=== PATIENT | female | born 1980 | race Hispanic/Latino ===

== ENCOUNTER 2020-09-29 19:36 | Inpatient (IN) | payer OTHER ==
[~2020-09-29] VITALS: Ht 152.4 cm; Wt 89.8 kg
[2020-09-29 21:21] VITALS: BP 90/57
[2020-09-29] MEDS ORDERED: ACETAMINOPHEN 500 MG TABLET PO ONE (22:00)
[2020-09-29] MEDS ORDERED: ACETAMINOPHEN 500 MG TABLET ONE (22:01)
[2020-09-29 22:07] LABS: BASOPHILS % (AUTO) 0.2 % (0.0-5.0); EOSINOPHILS % (AUTO) 0.2 % (0.0-8.0); HEMATOCRIT 40.6 % (36-48); MEAN CORPUSCULAR HEMOGLOBIN 26.8 pg (27.0-33.0); MEAN CORPUSCULAR HGB CONC 34.2 g/dL (32.0-36.0); MEAN CORPUSCULAR VOLUME 78.2 fL (79-99); PLATELET COUNT (AUTO) 182 K/uL (130-400); RED BLOOD CELL COUNT(AUTO) 5.19 MIL/uL (4.00-5.50); RED CELL DISTRIBUTION WIDTH 13.5 % (11.0-15.5); WHITE BLOOD COUNT (AUTO) 6.6 K/uL (4.8-10.8)
[2020-09-29 22:20] LABS: CREATININE 0.7 mg/dL (0.5-1.5); POTASSIUM 3.4 mmol/L (3.5-5.1)
[2020-09-29 22:24] LABS: ALBUMIN 3.7 g/dL (3.5-5.0); BILIRUBIN,TOTAL 0.6 mg/dL (0.2-1.0); CRP QUANTITATIVE 40.9 mg/L (0.00-9.0); TOTAL PROTEIN, SERUM 7.8 g/dL (6.0-8.3)
[2020-09-30] VITALS (9 sets, daily range): BP systolic 73–105; BP diastolic 44–92
[2020-09-30 00:01] LABS: ERYTHROCYTE SEDIMENTATION RATE 42 MM/HR (0-20)
[2020-09-30] MEDS ORDERED: IOHEXOL 350 MG/ML 100ML INFUS..BTL IV ONE (00:56)
[2020-09-30 00:57] LABS: ABG HCO3 23.2 mmol/L (21.0-28.0); ABG PCO2 34 mmHg (32-45)
[2020-09-30] MEDS ORDERED: CEFTRIAXONE 1G VIAL ONE (00:57)
[2020-09-30] MEDS ORDERED: AZITHROMYCIN 500MG+NS 250ML 250 ML IV ONE (00:57)
[2020-09-30] MEDS ORDERED: ONDANSETRON 4MG INJ ONE (00:57)
[2020-09-30] MEDS ORDERED: IBUPROFEN 600 MG TABLET PO PRN ×2 (01:00→23:00)
[2020-09-30] MEDS: AZITHROMYCIN 500MG VIAL IVPB SCH (01:15)
[2020-09-30] MEDS: CEFTRIAXONE 1G VIAL IVP SCH (01:15)
[2020-09-30] MEDS: ONDANSETRON 4MG INJ IVP PRN (01:15)
[2020-09-30] MEDS: 0.9% NACL 250ML IVPB SCH (01:15)
[2020-09-30 01:20] LABS: HEMOGLOBIN A1C 6.2 % (4.0-6.0)
[2020-09-30] MEDS: ALBUTEROL INHALER 90MCG/INH IH PRN ×2 (04:59→10:50)
[2020-09-30] MEDS: INSULIN HUMULIN R 100 UNIT/ML 3ML SQ SCH ×4 (07:30→21:59)
[2020-09-30] MEDS ORDERED: KCL 20 MEQ ERTAB PO ONE (08:30)
[2020-09-30] MEDS ORDERED: ENOXAPARIN SODIUM 40 MG/0.4 ML SYRINGE SQ SCH (09:00)
[2020-09-30] MEDS: ENOXAPARIN SODIUM 40 MG/0.4 ML SYRINGE SQ SCH ×3 (09:00→22:47)
[2020-09-30] MEDS ORDERED: ASCORBIC ACID 500 MG TAB PO SCH (09:00)
[2020-09-30] MEDS ORDERED: IBUPROFEN 600 MG TABLET ONE (10:37)
[2020-09-30] MEDS ORDERED: DEXAMETHASONE SOD PHOSPHATE 4 MG/ML 1ML VIAL ONE (10:40)
[2020-09-30] MEDS: ZINC SULFATE 220 CAPSULE PO SCH (10:49)
[2020-09-30] MEDS ORDERED: ERGOCALCIFEROL (VITAMIN D2) 50,000 UNIT CAPSULE PO ONE (11:00)
[2020-09-30] MEDS ORDERED: PHARMACY COMMUNICATION MISC SCH ×2 (11:00→18:30)
[2020-09-30 11:22] LABS: EOSINOPHILS % (AUTO) 2.5 % (0.0-8.0); HEMATOCRIT 36.2 % (36-48); LYMPHOCYTES % (AUTO) 16.9 % (21.0-51.0); MEAN CORPUSCULAR HEMOGLOBIN 27.2 pg (27.0-33.0); MEAN CORPUSCULAR HGB CONC 34.8 g/dL (32.0-36.0); MEAN CORPUSCULAR VOLUME 78.2 fL (79-99); MONOCYTES % (AUTO) 2.2 % (3.0-13.0); NEUTROPHILS % (AUTO) 77.7 % (40.0-77.0); PLATELET COUNT (AUTO) 167 K/uL (130-400); RED BLOOD CELL COUNT(AUTO) 4.63 MIL/uL (4.00-5.50); RED CELL DISTRIBUTION WIDTH 13.6 % (11.0-15.5)
[2020-09-30] MEDS ORDERED: PHARMACY COMMUNICATION**REMDESIVIR ORDER MISC SCH (11:30)
[2020-09-30 11:38] LABS: ALBUMIN 3.1 g/dL (3.5-5.0); BILIRUBIN,TOTAL 0.4 mg/dL (0.2-1.0); CREATININE 0.7 mg/dL (0.5-1.5); CRP QUANTITATIVE 57.9 mg/L (0.00-9.0); POTASSIUM 3.3 mmol/L (3.5-5.1); TOTAL PROTEIN, SERUM 6.9 g/dL (6.0-8.3)
[2020-09-30] MEDS ORDERED: COMPOUND IV REFRIGERATED 1 EACH IVSOLN MISC PRN (12:00)
[2020-09-30] MEDS ORDERED: REMDESIVIR (EUA) 520 200 MG in 0.9% NACL 250ML 250 ML IV ONE (12:00)
[2020-09-30] MEDS: DEXAMETHASONE SOD PHOSPHATE 4 MG/ML 1ML VIAL IVP SCH (12:00)
[2020-09-30] MEDS ORDERED: ERGOCALCIFEROL (VITAMIN D2) 50,000 UNIT CAPSULE ONE (13:17)
[2020-09-30] MEDS ORDERED: POTASSIUM CHLORIDE 10% ELIXIR 20 MEQ/15 ML UDCUP PO ONE (18:00)
[2020-09-30] MEDS ORDERED: [UNRECOGNIZED DRUG - OTHER] MISC SCH (18:00)
[2020-09-30] MEDS ORDERED: LACTATED RINGERS 1000ML IV ONE (19:30)
[2020-09-30] MEDS ORDERED: NOREPINEPHRINE 4MG/NS 250ML 250 ML IV PRN (19:30)
[2020-09-30] MEDS: MIDODRINE HCL 5 MG TABLET PO SCH (21:40)
[2020-09-30 22:45] LABS: INR 0.97 (0.85-1.15); PROTHROMBIN TIME 10.6 SEC (9.6-11.6)
[2020-09-30 22:46] LABS: PARTIAL THROMBOPLASTIN TIME 32.8 SEC (26.3-35.5)
[2020-10-01] MEDS ORDERED: AZITHROMYCIN 500MG+NS 250ML 250 ML IV ONE (01:31)
[2020-10-01] MEDS: 0.9% NACL 250ML IVPB SCH ×2 (01:37→21:33)
[2020-10-01] MEDS: AZITHROMYCIN 500MG VIAL IVPB SCH (01:37)
[2020-10-01] MEDS: CEFTRIAXONE 1G VIAL IVP SCH (01:37)
[2020-10-01 02:13] VITALS: BP 107/53
[2020-10-01 04:45] VITALS: BP 94/65
[2020-10-01 06:25] LABS: HEMATOCRIT 35.6 % (36-48); LYMPHOCYTES % (AUTO) 21.7 % (21.0-51.0); MEAN CORPUSCULAR HEMOGLOBIN 26.9 pg (27.0-33.0); MEAN CORPUSCULAR HGB CONC 34.3 g/dL (32.0-36.0); MEAN CORPUSCULAR VOLUME 78.6 fL (79-99); MONOCYTES % (AUTO) 5.2 % (3.0-13.0); NEUTROPHILS % (AUTO) 72.6 % (40.0-77.0); PLATELET COUNT (AUTO) 181 K/uL (130-400); RED BLOOD CELL COUNT(AUTO) 4.53 MIL/uL (4.00-5.50); RED CELL DISTRIBUTION WIDTH 13.6 % (11.0-15.5); WHITE BLOOD COUNT (AUTO) 4.2 K/uL (4.8-10.8)
[2020-10-01 06:39] LABS: ALBUMIN 2.8 g/dL (3.5-5.0); BILIRUBIN,TOTAL 0.3 mg/dL (0.2-1.0); CREATININE 0.6 mg/dL (0.5-1.5); CRP QUANTITATIVE 59.8 mg/L (0.00-9.0); POTASSIUM 3.9 mmol/L (3.5-5.1); TOTAL PROTEIN, SERUM 6.6 g/dL (6.0-8.3)
[2020-10-01] MEDS: REMDESIVIR LABS MISC SCH ×2 (06:54→21:33)
[2020-10-01] MEDS: INSULIN HUMULIN R 100 UNIT/ML 3ML SQ SCH ×4 (07:30→20:39)
[2020-10-01] MEDS: MIDODRINE HCL 5 MG TABLET PO SCH ×3 (08:25→20:35)
[2020-10-01] MEDS: ENOXAPARIN SODIUM 40 MG/0.4 ML SYRINGE SQ SCH ×2 (08:26→20:36)
[2020-10-01] MEDS: ZINC SULFATE 220 CAPSULE PO SCH (08:26)
[2020-10-01 08:33] VITALS: BP 92/47
[2020-10-01] MEDS ORDERED: ASCORBIC ACID 500 MG TAB PO SCH (09:00)
[2020-10-01] MEDS ORDERED: ZINC SULFATE 220 CAPSULE PO SCH (09:00)
[2020-10-01] MEDS: DEXAMETHASONE SOD PHOSPHATE 4 MG/ML 1ML VIAL IVP SCH (11:00)
[2020-10-01 12:00] VITALS: BP 106/47
[2020-10-01] MEDS: REMDESIVIR (EUA) 520 100 MG in 0.9% NACL 250ML 250 ML IV SCH (13:02)
[2020-10-01] MEDS: BARICITINIB (EUA) 2 MG TABLET PO SCH (18:30)
[2020-10-01] MEDS ORDERED: METF-444 PO (20:03)
[2020-10-01 20:24] VITALS: BP 94/57
[2020-10-01] MEDS ORDERED: PHARMACY COMMUNICATION MISC SCH (21:00)
[2020-10-02] VITALS (7 sets, daily range): BP systolic 91–105; BP diastolic 44–82
[2020-10-02 03:59] LABS: HEMATOCRIT 36.1 % (36-48); LYMPHOCYTES % (AUTO) 16.2 % (21.0-51.0); MEAN CORPUSCULAR HEMOGLOBIN 26.7 pg (27.0-33.0); MEAN CORPUSCULAR HGB CONC 34.1 g/dL (32.0-36.0); MEAN CORPUSCULAR VOLUME 78.3 fL (79-99); MONOCYTES % (AUTO) 5.8 % (3.0-13.0); NEUTROPHILS % (AUTO) 77.3 % (40.0-77.0); PLATELET COUNT (AUTO) 249 K/uL (130-400); RED BLOOD CELL COUNT(AUTO) 4.61 MIL/uL (4.00-5.50); RED CELL DISTRIBUTION WIDTH 13.6 % (11.0-15.5); WHITE BLOOD COUNT (AUTO) 7.4 K/uL (4.8-10.8)
[2020-10-02 04:17] LABS: ALBUMIN 2.7 g/dL (3.5-5.0); BILIRUBIN,TOTAL 0.3 mg/dL (0.2-1.0); CREATININE 0.6 mg/dL (0.5-1.5); CRP QUANTITATIVE 19.7 mg/L (0.00-9.0); TOTAL PROTEIN, SERUM 6.5 g/dL (6.0-8.3)
[2020-10-02] MEDS: INSULIN HUMULIN R 100 UNIT/ML 3ML SQ SCH ×4 (06:06→19:57)
[2020-10-02] MEDS: ENOXAPARIN SODIUM 40 MG/0.4 ML SYRINGE SQ SCH ×2 (08:59→19:54)
[2020-10-02] MEDS: BARICITINIB (EUA) 2 MG TABLET PO SCH (08:59)
[2020-10-02] MEDS: MIDODRINE HCL 5 MG TABLET PO SCH ×3 (09:39→19:52)
[2020-10-02] MEDS: DEXAMETHASONE SOD PHOSPHATE 4 MG/ML 1ML VIAL IVP SCH (11:49)
[2020-10-02] MEDS: REMDESIVIR (EUA) 520 100 MG in 0.9% NACL 250ML 250 ML IV SCH (13:01)
[2020-10-03 04:00] VITALS: BP 92/48
[2020-10-03 04:15] LABS: BASOPHILS % (AUTO) 0.1 % (0.0-5.0); HEMATOCRIT 35.9 % (36-48); LYMPHOCYTES % (AUTO) 21.7 % (21.0-51.0); MEAN CORPUSCULAR HEMOGLOBIN 26.3 pg (27.0-33.0); MEAN CORPUSCULAR HGB CONC 33.4 g/dL (32.0-36.0); MEAN CORPUSCULAR VOLUME 78.7 fL (79-99); MONOCYTES % (AUTO) 6.1 % (3.0-13.0); NEUTROPHILS % (AUTO) 71.2 % (40.0-77.0); PLATELET COUNT (AUTO) 262 K/uL (130-400); RED BLOOD CELL COUNT(AUTO) 4.56 MIL/uL (4.00-5.50); RED CELL DISTRIBUTION WIDTH 13.4 % (11.0-15.5); WHITE BLOOD COUNT (AUTO) 6.8 K/uL (4.8-10.8)
[2020-10-03 04:37] LABS: ALBUMIN 2.7 g/dL (3.5-5.0); BILIRUBIN,TOTAL 0.3 mg/dL (0.2-1.0); CREATININE 0.6 mg/dL (0.5-1.5); CRP QUANTITATIVE 6.2 mg/L (0.00-9.0); POTASSIUM 3.5 mmol/L (3.5-5.1); TOTAL PROTEIN, SERUM 6.3 g/dL (6.0-8.3)
[2020-10-03] MEDS: REMDESIVIR LABS MISC SCH (05:22)
[2020-10-03] MEDS: INSULIN HUMULIN R 100 UNIT/ML 3ML SQ SCH ×4 (05:53→20:56)
[2020-10-03] MEDS: ONDANSETRON 4MG INJ IVP PRN (07:53)
[2020-10-03 08:11] VITALS: BP 88/57
[2020-10-03] MEDS: MIDODRINE HCL 5 MG TABLET PO SCH ×3 (09:08→20:53)
[2020-10-03] MEDS: BARICITINIB (EUA) 2 MG TABLET PO SCH (09:08)
[2020-10-03] MEDS: ENOXAPARIN SODIUM 40 MG/0.4 ML SYRINGE SQ SCH ×2 (09:09→20:54)
[2020-10-03] MEDS: DEXAMETHASONE SOD PHOSPHATE 4 MG/ML 1ML VIAL IVP SCH (11:22)
[2020-10-03] MEDS ORDERED: POLYETHYLENE GLYCOL 3350 17 GM POWD.PACK PO ONE (11:30)
[2020-10-03 11:52] VITALS: BP 100/58
[2020-10-03] MEDS: POLYETHYLENE GLYCOL 3350 17 GM POWD.PACK PO SCH (12:26)
[2020-10-03] MEDS: DOCUSATE SODIUM 100 MG CAP PO SCH ×2 (12:26→20:53)
[2020-10-03] MEDS: REMDESIVIR (EUA) 520 100 MG in 0.9% NACL 250ML 250 ML IV SCH (12:54)
[2020-10-03 13:46] LABS: APPEARANCE,URINE Clear (CLEAR); BILIRUBIN,URINE Negative (NEGATIVE); COLOR,URINE Yellow (YELLOW); GLUCOSE, URINE (UA) Negative (NEGATIVE); KETONES,URINE Negative (NEGATIVE); LEUKOCYTE ESTERASE ,URINE Negative (NEGATIVE); NITRATE,URINE Negative (NEGATIVE); OCCULT BLOOD,URINE Negative (NEGATIVE); PROTEIN,URINE Negative (NEGATIVE)
[2020-10-03 16:59] VITALS: BP 99/57
[2020-10-03 20:00] VITALS: BP 101/44
[2020-10-03 23:59] VITALS: BP 117/60
[2020-10-04 03:59] VITALS: BP 102/59
[2020-10-04 05:27] LABS: CRP QUANTITATIVE 2.2 mg/L (0.00-9.0); THYROID STIMULATING HORMONE 0.66 uIU/mL (0.36-3.74)
[2020-10-04] MEDS: INSULIN HUMULIN R 100 UNIT/ML 3ML SQ SCH ×4 (05:43→20:10)
[2020-10-04] MEDS: REMDESIVIR LABS MISC SCH (06:00)
[2020-10-04 06:24] LABS: ALBUMIN 2.8 g/dL (3.5-5.0); BILIRUBIN,TOTAL 0.3 mg/dL (0.2-1.0); CREATININE 0.6 mg/dL (0.5-1.5); POTASSIUM 4.2 mmol/L (3.5-5.1); TOTAL PROTEIN, SERUM 6.4 g/dL (6.0-8.3)
[2020-10-04 08:00] VITALS: BP 95/52
[2020-10-04] MEDS: POLYETHYLENE GLYCOL 3350 17 GM POWD.PACK PO SCH (08:46)
[2020-10-04] MEDS: ENOXAPARIN SODIUM 40 MG/0.4 ML SYRINGE SQ SCH ×2 (08:46→20:12)
[2020-10-04] MEDS: BARICITINIB (EUA) 2 MG TABLET PO SCH (08:46)
[2020-10-04] MEDS: DOCUSATE SODIUM 100 MG CAP PO SCH ×2 (08:46→20:12)
[2020-10-04] MEDS: MIDODRINE HCL 5 MG TABLET PO SCH ×3 (08:46→20:12)
[2020-10-04] MEDS: DEXAMETHASONE SOD PHOSPHATE 4 MG/ML 1ML VIAL IVP SCH (11:49)
[2020-10-04 12:00] VITALS: BP 103/54
[2020-10-04] MEDS ORDERED: GUAIFENESIN-DM 200/20 MG 10 ML PO PRN (12:30)
[2020-10-04] MEDS: REMDESIVIR (EUA) 520 100 MG in 0.9% NACL 250ML 250 ML IV SCH (13:06)
[2020-10-04] MEDS ORDERED: VANCOMYCIN PROTOCOL PER PHARMACY IV SCH (14:00)
[2020-10-04] MEDS ORDERED: CEFTRIAXONE 1G VIAL IVP SCH (14:00)
[2020-10-04] MEDS ORDERED: COMPOUND IV REFRIGERATED 1 EACH IVSOLN MISC PRN (14:00)
[2020-10-04] MEDS: VANCOMYCIN 1.25GM/NS 250ML IVPB SCH ×2 (15:35)
[2020-10-04 16:00] VITALS: BP 118/70
[2020-10-04 20:00] VITALS: BP 96/61
[2020-10-05] VITALS (7 sets, daily range): BP systolic 81–120; BP diastolic 44–63
[2020-10-05] MEDS: VANCOMYCIN 1.25GM/NS 250ML IVPB SCH ×2 (02:00)
[2020-10-05 05:59] LABS: BASOPHILS % (AUTO) 0.4 % (0.0-5.0); EOSINOPHILS % (AUTO) 0.2 % (0.0-8.0); HEMATOCRIT 38.8 % (36-48); LYMPHOCYTES % (AUTO) 23.8 % (21.0-51.0); MEAN CORPUSCULAR HEMOGLOBIN 26.3 pg (27.0-33.0); MEAN CORPUSCULAR HGB CONC 32.7 g/dL (32.0-36.0); MEAN CORPUSCULAR VOLUME 80.5 fL (79-99); MONOCYTES % (AUTO) 7.2 % (3.0-13.0); PLATELET COUNT (AUTO) 321 K/uL (130-400); RED BLOOD CELL COUNT(AUTO) 4.82 MIL/uL (4.00-5.50); RED CELL DISTRIBUTION WIDTH 13.4 % (11.0-15.5); WHITE BLOOD COUNT (AUTO) 8.2 K/uL (4.8-10.8)
[2020-10-05] MEDS: INSULIN HUMULIN R 100 UNIT/ML 3ML SQ SCH ×4 (06:05→21:06)
[2020-10-05 06:16] LABS: CARBON DIOXIDE 25 mmol/L (21-32); CHLORIDE 108 mmol/L (101-111); CREATININE 0.6 mg/dL (0.5-1.5); GLOMERULAR FILTR. RATE CALC 117 mL/min (>60); GLUCOSE,RANDOM 115 mg/dL (70-105); POTASSIUM 3.9 mmol/L (3.5-5.1); SODIUM SERUM 142 mmol/L (136-145); UREA NITROGEN, BLOOD 13 mg/dL (7-18)
[2020-10-05 06:21] LABS: CRP QUANTITATIVE < 2.00 mg/L (0.00-9.0)
[2020-10-05] MEDS: DOCUSATE SODIUM 100 MG CAP PO SCH ×2 (09:03→20:57)
[2020-10-05] MEDS: MIDODRINE HCL 5 MG TABLET PO SCH ×3 (09:04→20:57)
[2020-10-05] MEDS: ENOXAPARIN SODIUM 40 MG/0.4 ML SYRINGE SQ SCH ×2 (09:04→20:58)
[2020-10-05] MEDS: POLYETHYLENE GLYCOL 3350 17 GM POWD.PACK PO SCH (09:04)
[2020-10-05] MEDS: DEXAMETHASONE SOD PHOSPHATE 4 MG/ML 1ML VIAL IVP SCH (10:53)
[2020-10-05] MEDS: AMOX/CLAV 500/125MG TAB PO SCH ×2 (15:28→22:30)
[2020-10-05] MEDS: BARICITINIB (EUA) 2 MG TABLET PO SCH (15:28)
[2020-10-06 03:36] VITALS: BP 98/48
[2020-10-06] MEDS: INSULIN HUMULIN R 100 UNIT/ML 3ML SQ SCH ×4 (05:18→20:35)
[2020-10-06 06:12] LABS: BASOPHILS % (AUTO) 0.4 % (0.0-5.0); EOSINOPHILS % (AUTO) 1.2 % (0.0-8.0); MEAN CORPUSCULAR HEMOGLOBIN 26.7 pg (27.0-33.0); MEAN CORPUSCULAR HGB CONC 33.3 g/dL (32.0-36.0); MEAN CORPUSCULAR VOLUME 80.2 fL (79-99); MONOCYTES % (AUTO) 7.8 % (3.0-13.0); NEUTROPHILS % (AUTO) 57.7 % (40.0-77.0); PLATELET COUNT (AUTO) 375 K/uL (130-400); RED BLOOD CELL COUNT(AUTO) 4.99 MIL/uL (4.00-5.50); RED CELL DISTRIBUTION WIDTH 13.5 % (11.0-15.5); WHITE BLOOD COUNT (AUTO) 10.3 K/uL (4.8-10.8)
[2020-10-06 06:20] LABS: CREATININE 0.7 mg/dL (0.5-1.5); POTASSIUM 4.1 mmol/L (3.5-5.1)
[2020-10-06 07:00] VITALS: BP 124/86
[2020-10-06] MEDS: BARICITINIB (EUA) 2 MG TABLET PO SCH (08:53)
[2020-10-06] MEDS: POLYETHYLENE GLYCOL 3350 17 GM POWD.PACK PO SCH (08:57)
[2020-10-06] MEDS: ENOXAPARIN SODIUM 40 MG/0.4 ML SYRINGE SQ SCH ×2 (08:57→19:49)
[2020-10-06] MEDS: MIDODRINE HCL 5 MG TABLET PO SCH ×3 (08:57→19:49)
[2020-10-06] MEDS: AMOX/CLAV 500/125MG TAB PO SCH ×3 (08:57→22:02)
[2020-10-06] MEDS: DOCUSATE SODIUM 100 MG CAP PO SCH ×2 (08:58→19:48)
[2020-10-06] MEDS: DEXAMETHASONE 4 MG TAB PO SCH (08:59)
[2020-10-06 11:46] VITALS: BP 95/58
[2020-10-06 15:37] VITALS: BP 103/60
[2020-10-06 17:53] LABS: THYROID STIMULATING HORMONE 1.76 uIU/mL (0.36-3.74)
[2020-10-06 20:00] VITALS: BP 100/48
[2020-10-07] VITALS: BP 96/54
[2020-10-07 04:00] VITALS: BP 98/51
[2020-10-07] MEDS: INSULIN HUMULIN R 100 UNIT/ML 3ML SQ SCH ×3 (05:57→18:14)
[2020-10-07] MEDS: AMOX/CLAV 500/125MG TAB PO SCH ×2 (06:17→14:48)
[2020-10-07 08:23] VITALS: BP 94/57
[2020-10-07] MEDS: POLYETHYLENE GLYCOL 3350 17 GM POWD.PACK PO SCH (09:00)
[2020-10-07] MEDS: DOCUSATE SODIUM 100 MG CAP PO SCH (09:58)
[2020-10-07] MEDS: ENOXAPARIN SODIUM 40 MG/0.4 ML SYRINGE SQ SCH (09:59)
[2020-10-07] MEDS: MIDODRINE HCL 5 MG TABLET PO SCH ×2 (09:59→14:48)
[2020-10-07] MEDS: DEXAMETHASONE 4 MG TAB PO SCH (10:00)
[2020-10-07] MEDS: BARICITINIB (EUA) 2 MG TABLET PO SCH (10:00)
[2020-10-07] MEDS ORDERED: ACETAMINOPHEN 325 MG TAB PO PRN (10:30)
[2020-10-07 12:00] VITALS: BP 91/50
[2020-10-07] MEDS ORDERED: DEXA6TAB PO (12:54)
[2020-10-07] MEDS ORDERED: APIX2.5T PO (12:54)
[2020-10-07] MEDS ORDERED: AMOX-426 PO (12:54)
[2020-10-07] MEDS ORDERED: MIDO10TA PO (12:54)
[2020-10-07 16:00] VITALS: BP 94/51
== END 2020-10-07 18:30 | disposition home or self-care (01) | DRG 177 ==
LOC: EDH 19:36 → EDHIP 19:37 → 4AH 10-01 19:55
PROVIDERS: ADMIT Hospitalist; ATTEND Hospitalist
PROC: XW033E5 Introduction of Remdesivir Anti-infective into Peripheral Vein, Percutaneous Approach, New Technology Group 5 (ICD-10-PCS; principal; 2020-09-30)
DX: U07.1 COVID-19 (principal); J12.82 Pneumonia due to coronavirus disease 2019; J96.01 Acute respiratory failure with hypoxia; D68.59 Other primary thrombophilia; E87.1 Hypo-osmolality and hyponatremia; E87.6 Hypokalemia; E66.9 Obesity, unspecified; B96.20 Unspecified Escherichia coli [E. coli] as the cause of diseases classified elsewhere; E11.65 Type 2 diabetes mellitus with hyperglycemia; I10 Essential (primary) hypertension; Z68.38 Body mass index [BMI] 38.0-38.9, adult
CPT/HCPCS: 36415; 36600; 71045; 71275; 80048; 80053; 81003; 82533; 82550; 82627; 82728; 82803; 82948; 83036; 83605; 83615; 84145; 84439; 84443; 84484; 85025; 85378; 85610; 85651; 85730; 86140; 87040; 87077; 87088; 87186; 87635; 87804; 93005; 93306; 93970; 94760; A4606; C9803; G0378; J0456; J0696; J1100; J1650; J1815; J2405; J3370; J7050; J8540; Q9967